=== PATIENT | female | born 1990 | race American Indian/Alaskan Native ===

== ENCOUNTER 2019-05-15 21:47 | Emergency (ER) | payer SELFPAY ==
[2019-05-15 21:52] VITALS: BP 126/76
--- NOTE | 2019-05-15 21:52 | Emergency Department Report ---
Blank Doc - Documentation Documentation: This is a 28-year-old female that presents with sore throat. This initial assessment/diagnostic orders/clinical plan/treatment(s) is/are subject to change based on patient's health status, clinical progression and re- assessment by fellow clinical providers in the ED. Further treatment and workup at subsequent clinical providers discretion. Patient/guardians urged not to elope from the ED as their condition may be serious if not clinically assessed and managed. Initial orders include: 1- Patient sent to [facility] for further evaluation and treatment 2- strep swab
[2019-05-16] MEDS ORDERED: BICILLIN L-A IM ONE (00:12)
[2019-05-16] MEDS ORDERED: IBUPROFEN PO ONE (00:13)
--- NOTE | 2019-05-16 00:14 | Emergency Department Report ---
ED ENT HPI - General Chief complaint: Sore Throat Stated complaint: TONSILS SWOLLEN Time Seen by Provider: 05/15/19 21:51 Source: patient Mode of arrival: Ambulatory Limitations: No Limitations - History of Present Illness Initial comments: 28-year-old -[place] female presents to the emergency room for 2 days history of sore throat. Patient reports pain is worse with swallowing. Patient reports feeling sick yesterday feels better today. Has not taken anything for pain. Has no known drug allergies. Currently takes no medications on a daily basis. MD complaint: sore throat Onset/Timin -: days(s) Location: throat Severity: moderate Severity scale (0 -10): 8 Quality: aching, sharp Consistency: constant Improves with: none Worsens with: swallowing Associated Symptoms: pain with swallowing, sore throat - Related Data Previous Rx's Medication Instructions Recorded Last Taken Type Ibuprofen [Motrin 600 MG tab] 600 mg PO Q8H PRN #15 tablet 05/16/19 Unknown Rx Allergies Allergy/AdvReac Type Severity Reaction Status Date / Time No Known Allergies Allergy Verified 05/15/19 21:49 ED Dental HPI - General Chief complaint: Sore Throat Stated complaint: TONSILS SWOLLEN Time Seen by Provider: 05/15/19 21:51 Source: patient Mode of arrival: Ambulatory Limitations: No Limitations - Related Data Previous Rx's Medication Instructions Recorded Last Taken Type Ibuprofen [Motrin 600 MG tab] 600 mg PO Q8H PRN #15 tablet 05/16/19 Unknown Rx Allergies Allergy/AdvReac Type Severity Reaction Status Date / Time No Known Allergies Allergy Verified 05/15/19 21:49 ED Review of Systems ROS: Stated complaint: TONSILS SWOLLEN Other details as noted in HPI Comment: All other systems reviewed and negative ED Past Medical Hx - Past Medical History Previous Medical History?: No - Surgical History Past Surgical History?: No - Social History Smoking Status: Never Smoker Substance Use Type: None - Medications Home Medications: Home Medications Medication Instructions Recorded Confirmed Last Taken Type Ibuprofen [Motrin 600 MG tab] 600 mg PO Q8H PRN #15 tablet 05/16/19 Unknown Rx ED Physical Exam - General Limitations: No Limitations General appearance: alert, in no apparent distress - Head Head exam: Present: atraumatic, normocephalic - Eye Eye exam: Present: normal appearance - Expanded ENT Exam Expanded Throat exam: Positive: tonsillar erythema, tonsillomegaly, tonsillar exudate - Neck Neck exam: Present: tenderness, full ROM, lymphadenopathy - Neurological Exam Neurological exam: Present: alert, oriented X3, normal gait - Psychiatric Psychiatric exam: Present: normal affect, normal mood - Skin Skin exam: Present: warm, dry, intact, normal color. Absent: rash ED Course Vital Signs 05/15/19 21:51 Temperature 98.6 F Pulse Rate 88 Respiratory 18 Rate Blood Pressure 126/76 O2 Sat by Pulse 100 Oximetry ED Medical Decision Making - Lab Data Lab Results 05/15/19 Range/Units 21:52 Group A Strep Rapid Positive A (Negative) - Medical Decision Making 28-year-old female comes in with 2 day history of sore throat. Patient has positive strep throat. Patient be given a penicillin benzocaine IM 1.2 million units 1. As well as ibuprofen 600 mg by mouth. Patient was discharged home with ibuprofen. Critical care attestation.: If time is entered above; I have spent that time in minutes in the direct care of this critically ill patient, excluding procedure time. ED Disposition Clinical Impression: Strep sore throat Disposition: DC-01 TO HOME OR SELFCARE Is pt being admited?: No Does the pt Need Aspirin: No Condition: Stable Instructions: Strep Throat (ED) Additional Instructions: Please take pain medication as needed. Increase her fluid intake eventually as tolerated. Prescriptions: Ibuprofen [Motrin 600 MG tab] 600 mg PO Q8H PRN #15 tablet PRN Reason: Pain , Severe (7-10) Referrals: GABINO GUARDADO MD [Primary Care Provider] - 3-5 Days Forms: Work/School Release Form(ED)
== END 2019-05-16 00:44 | disposition home or self-care (01) ==
LOC: ED 21:47
DX: J02.0 Streptococcal pharyngitis (principal)
CPT/HCPCS: 87430; 96372; 99283; J0561